=== PATIENT | male | born 1940 | race Caucasian/White ===

== ENCOUNTER 2016-07-19 08:14 | Day surgery (SDC) | payer MEDICARE ==
[~2016-07-19 08:14] MED LIST: FENTANYL 250 MCG/5 ML AMP IV PRN; LACTATED RINGERS 1,000 ML IV SCH; MIDAZOLAM HCL 5 MG/5 ML VIAL IV PRN
[2016-07-19] MEDS ORDERED: LACTATED RINGERS 1,000 ML ONE ×2 (08:41→08:50)
[2016-07-19] MEDS ORDERED: IV START KIT ONE ×2 (08:41→08:50)
[2016-07-19] MEDS ORDERED: FENTANYL 5 ML ONE (09:23)
[2016-07-19] MEDS ORDERED: MIDAZOLAM HCL 5 MG/5 ML VIAL ONE (09:23)
== END 2016-07-19 10:41 | disposition home or self-care (01) ==
LOC: SDC 08:14
PROVIDERS: ATTEND Internal Medicine Gastroenterology
PROC: 0DJD8ZZ Inspection of Lower Intestinal Tract, Via Natural or Artificial Opening Endoscopic (ICD-10-PCS; principal; 2016-07-19)
DX: Z12.11 Encounter for screening for malignant neoplasm of colon (principal); K57.30 Diverticulosis of large intestine without perforation or abscess without bleeding; Z87.891 Personal history of nicotine dependence; J98.8 Other specified respiratory disorders; L40.9 Psoriasis, unspecified; L30.9 Dermatitis, unspecified; Z79.82 Long term (current) use of aspirin
CPT/HCPCS: 45378; J3010; J2250; J7120 ×2